=== PATIENT | male | born 1945 | race Asian ===

== ENCOUNTER 2017-07-24 23:44 | Day surgery (SDC) | payer OTHER ==
[2017-07-25] MEDS ORDERED: LIDOCAINE 100 MG SYRINGE
[2017-07-25] MEDS ORDERED: DEXTROSE 50% 50 ML SYRINGE
[2017-07-25] MEDS ORDERED: NA BICARBONATE 8.4% 50 ML SYG
[2017-07-25] MEDS ORDERED: CA CHLORIDE 10% 10 ML SYRINGE
[2017-07-25] MEDS ORDERED: EPINEPHrine 0.1 MG/ML SYG
[2017-07-25] MEDS: DILTIAZEM 25 MG INJ IV ×2 (00:25→00:41)
[2017-07-25] MEDS: SOD CHLORIDE 0.9% 1,000 ML IV ×2 (00:26→01:48)
[2017-07-25 00:46] LABS: ADD MAN DIFF? NO
[2017-07-25 00:49] LABS: WHITE BLOOD COUNT 19.9 10^3/ul (4.8-10.8)
[2017-07-25 00:49] LABS: BASOPHIL # 0.1 10^3/ul (0.0-0.1); BASOPHILS % 0.4 % (0.0-2.0); EOSINOPHILS % 0.2 % (0.0-7.0); HEMATOCRIT 36.8 % (42.0-52.0); HEMOGLOBIN 12.2 g/dl (14.0-18.0); LYMPHOCYTES # 4.2 10^3/ul (0.8-2.9); LYMPHOCYTES % 21.2 % (15.0-51.0); MEAN CORPUSCULAR HEMOGLOBIN 26.5 pg (29.0-33.0); MEAN CORPUSCULAR HGB CONC 33.2 g/dl (32.0-37.0); MEAN PLATELET VOLUME 10.5 fl (7.4-10.4); MONOCYTE # 1.5 10^3/ul (0.3-0.9); MONOCYTES % 7.4 % (0.0-11.0); NEUTROPHILS % 70.1 % (39.0-77.0); PLATELET COUNT 348 10^3/UL (140-415); RED CELL DISTRIBUTION WIDTH 13.8 % (11.5-14.5)
[2017-07-25 01:05] LABS: ANION GAP 28 (8-16); BLOOD UREA NITROGEN 24 mg/dl (7-20); CALCIUM 8.6 mg/dl (8.4-10.2); CARBON DIOXIDE 14 mmol/L (21-31); CHLORIDE 103 mmol/L (97-110); CREATININE 1.17 mg/dl (0.61-1.24); GLUCOSE 222 mg/dl (70-220); MAGNESIUM 2.5 mg/dl (1.7-2.5); POTASSIUM 3.4 mmol/L (3.5-5.1); SODIUM 142 mmol/L (135-144)
[2017-07-25] MEDS: DILTIAZEM-D5W 125MG/125ML DRIP 125 ML IV (01:08)
[2017-07-25 01:10] LABS: INR 1.28; PROTIME 16.2 Sec (11.9-14.9); PT RATIO 1.3
[2017-07-25 01:11] LABS: PARTIAL THROMBOPLASTIN TIME 37.5 Sec (25.0-35.0)
[2017-07-25] MEDS ORDERED: POTASSIUM CHLORIDE 100 ML IVPB (01:30)
[2017-07-25] MEDS: SOD CHLORIDE 0.9% 500 ML IV (01:30)
[2017-07-25 01:38] LABS: THYROID STIMULATING HORMONE < 0.015 MIU/L (0.465-4.680)
[2017-07-25] MEDS: DIGOXIN 500 MCG INJ IV (01:40)
[2017-07-25] MEDS ORDERED: ASPIRIN 81 MG TAB (02:50)
[2017-07-25] MEDS ORDERED: METOPROLOL 5 MG INJ (02:53)
[2017-07-25] MEDS ORDERED: METOPROLOL 5 MG INJ IV (03:30)
[2017-07-25] MEDS: POTASSIUM CHLORIDE 20 MEQ in SOD CHLORIDE 0.9% 100 ML IV ×2 (04:00→04:40)
[2017-07-25] MEDS: METOPROLOL 5 MG INJ IV (04:11)
[2017-07-25] MEDS: ASPIRIN 81 MG TAB PO (04:12)
[2017-07-25] MEDS ORDERED: IODIXANOL LOCM 50 ML BTL (05:24)
[2017-07-25] MEDS ORDERED: HEPARIN 1000 UNITS/ML 10 ML INJ (05:24)
[2017-07-25] MEDS ORDERED: IODIXANOL LOCM 100 ML BTL (05:24)
[2017-07-25] MEDS ORDERED: FENTAnyl 50 MCG/ML VIAL (05:24)
[2017-07-25] MEDS ORDERED: MIDAZOLAM 1 MG/ML 2 ML INJ (05:25)
[2017-07-25] MEDS ORDERED: VERAPAMIL 5 MG INJ (05:25)
[2017-07-25] MEDS ORDERED: NITROGLYCERIN (IC) 100 MCG/ML INJ (05:25)
[2017-07-25] MEDS ORDERED: DOPamine-D5W 1.6 MG/ML 250 ML (05:44)
[2017-07-25 06:33] LABS: Arterial Base Excess -26.3 mmol/L (-3.0-3); Arterial Blood Gas Oxygen Sat 92.7 mmHG (95.0-98.0); Arterial COHb 0.3 % (0.0-3.0); Arterial Fraction of Oxyhgb 92.1 % (93.0-99.0); Arterial HCO3 6.8 mmol/L (22.0-26.0); Arterial MetHb 0.4 % (0.0-1.5); Arterial pCO2 40.7 mmhg (35-45); Blood Gas Low PEEP Setting 0 cmH2O; MODE VENT - AC; Site A-Line
[2017-07-25] MEDS ORDERED: CEFAZOLIN 2 GM/50 ML (PMX) 50 ML IVPB (06:43)
[2017-07-25] MEDS ORDERED: AMIODARONE 150 MG INJ ×2 (07:17)
[2017-07-25] MEDS ORDERED: AMIODARONE 900 MG in DEXTROSE 5% 482 ML IV (07:30)
[2017-07-25] MEDS ORDERED: PHENYLephrine 20MG IN 250 ML 250 ML IV (07:30)
== END 2017-07-25 08:06 | disposition expired ==
LOC: E/R 23:44 → CCL 07-25 05:37 → SDS 07-25 05:37 → ICU 07-25 08:04 → CCL 07-25 08:06
DX: R57.0 Cardiogenic shock (principal); I21.4 Non-ST elevation (NSTEMI) myocardial infarction; I25.10 Atherosclerotic heart disease of native coronary artery without angina pectoris; I48.91 Unspecified atrial fibrillation; I48.92 Unspecified atrial flutter; E87.6 Hypokalemia; E03.9 Hypothyroidism, unspecified; F17.200 Nicotine dependence, unspecified, uncomplicated
CPT/HCPCS: 31500; 36600; 71045; 80048; 82803; 83735; 84443; 84484; 85025; 85610; 85730; 92950; 93005; 93454; 94002